=== PATIENT | male | born 1975 | race Caucasian/White ===

== ENCOUNTER 2018-06-20 22:32 | Emergency (ER) | payer OTHER ==
[~2018-06-20] VITALS: Ht 177.8 cm; Wt 86.2 kg
[2018-06-20 23:48] LABS: Basophils # (auto) 0.1 uL; Basophils % (auto) 0.5 % (0.0-2.0); Eosinophils # (auto) 0.3 uL; Eosinophils % (auto) 1.6 % (0.0-7.0); Hematocrit 45.5 % (41.0-53.0); Lymphocytes # (auto) 3.1 uL; Lymphocytes % (auto) 19.3 % (10.0-50.0); Monocytes # (auto) 1.2 uL; Monocytes % (auto) 7.3 % (0.0-12.0); Neutrophils # (auto) 11.6 uL; Neutrophils % (auto) 71.3 % (37.0-80.0); Platelet Count (auto) 295 10^3/uL (140-450); Red Blood Cells 5.35 10^6/uL (4.5-5.90); Red Cell Distribution Width 14.4 % (11.8-14.3); White Blood Cell 16.2 10^3/uL (4.4-10.8)
[2018-06-21 00:06] LABS: Albumin 3.5 g/dL (3.4-5.0); BUN/Creatinine Ratio 14.3; Calcium 8.4 mg/dL (8.5-10.1); Potassium 3.5 mmol/L (3.5-5.1)
[2018-06-21 00:09] LABS: Bilirubin, Total 0.2 mg/dL (0.2-1.0); Total Protein 6.9 g/dL (6.4-8.2)
[2018-06-21 02:09] VITALS: BP 146/85
== END 2018-06-21 03:18 | disposition home or self-care (01) ==
LOC: ER 22:32
DX: T80.89XA Other complications following infusion, transfusion and therapeutic injection, initial encounter (principal); R22.41 Localized swelling, mass and lump, right lower limb
CPT/HCPCS: 36415; 80053; 85025